=== PATIENT | male | born 1980 | race Hispanic/Latino ===

== ENCOUNTER → 2023-11-06 08:40 | Outpatient (REF) | payer OTHER, SELFPAY ==
[2023-11-06 14:43] LABS: Vitamin D, 25-OH*** 43.2 ng/mL (30-80)
== END ==
LOC: REG 08:40
PROVIDERS: ATTENDING PHYSICIAN Nurse Practitioner Adult Health
DX: E55.9 Vitamin D deficiency, unspecified (principal)
CPT/HCPCS: 36415; 82306